=== PATIENT | male | born 1995 | race African-American/Black ===

== ENCOUNTER 2019-05-25 18:41 | Emergency (ER) | payer OTHER ==
[~2019-05-25] VITALS: Ht 175.3 cm; Wt 70.3 kg
[2019-05-25 18:49] VITALS: BP 123/80
== END 2019-05-25 19:47 | disposition home or self-care (01) ==
LOC: ER 18:41
DX: S61.217A Laceration without foreign body of left little finger without damage to nail, initial encounter (principal); W26.0XXA Contact with knife, initial encounter; Y93.89 Activity, other specified; Y92.89 Other specified places as the place of occurrence of the external cause; Y99.8 Other external cause status